=== PATIENT | male | born 1990 | race Hispanic/Latino ===

== ENCOUNTER 2017-05-04 10:26 | Emergency (ER) | payer SELFPAY ==
[2017-05-04] MEDS ORDERED: TETANUS/DIPHTHERIA TOXOID [ADULT] 0.5 ML VIAL IM ONE (11:10)
== END 2017-05-04 12:22 | disposition home or self-care (01) ==
LOC: EDH 10:26
DX: S61.432A Puncture wound without foreign body of left hand, initial encounter (principal); S61.431A Puncture wound without foreign body of right hand, initial encounter; Z72.0 Tobacco use; W26.0XXA Contact with knife, initial encounter; Y93.89 Activity, other specified; Y92.89 Other specified places as the place of occurrence of the external cause; Y99.8 Other external cause status
CPT/HCPCS: 90471; 90714

== ENCOUNTER 2017-09-06 23:10 | Emergency (ER) | payer OTHER | END 2017-09-06 23:46 | disposition home or self-care (01) | LOC: EDH 23:10 | DX: K08.89 Other specified disorders of teeth and supporting structures (principal) | CPT/HCPCS: 99281 ==

== ENCOUNTER 2024-10-12 09:34 | Emergency (ER) | payer SELFPAY ==
[~2024-10-12] VITALS: Ht 165.1 cm; Wt 95.3 kg
[2024-10-12] MEDS: 0.9%NACL 1000ML 1,000 ML IV ONE (10:19)
[2024-10-12 10:26] LABS: IMMATURE GRANULOCYTE ABSOLUTE 0.01 K/uL (0-1); NUCLEATED RED BLOOD CELLS 0.0 % (0.0-0.19); PLATELET COUNT (AUTO) 192 K/uL (130-400); RED BLOOD CELL COUNT(AUTO) 5.09 MIL/uL (4.50-6.20); RED CELL DISTRIBUTION WIDTH 12.3 % (11.0-15.5); WHITE BLOOD COUNT (AUTO) 6.1 K/uL (4.8-10.8)
[2024-10-12 10:40] LABS: CREATININE 0.9 mg/dL (0.5-1.3); GLOMERULAR FILTR. RATE CALC 117.0 mL/min (>90); GLUCOSE,RANDOM 133.0 mg/dL (70-105); SODIUM SERUM 134.0 mmol/L (136-145); UREA NITROGEN, BLOOD 10.0 mg/dL (7-18)
[2024-10-12 11:23] VITALS: BP 117/74; PULSE 87; RESP 18; TEMP 98.7; O2SAT 97
[2024-10-12] MEDS ORDERED: ONDA-243 PO (11:32)
--- NOTE | 2024-10-12 11:32 | ERN ---
ED Note History of Present Illness Stated Complaint: HEADACHE, N/V Chief Complaint: Headache Time Seen by MD: 09:37 Dictation: 33-year-old male presenting to the emergency department with a headache nausea vomiting reports that he was outside for multiple hours doing yd work and began having symptoms of dehydration. Patient reports he feels better now that he is in the AC and denies any chest pain or shortness of breath Allergies: Coded Allergies: No Known Drug Allergies (Unverified Allergy, Unknown, 10/12/24) Past Medical History Past Medical History: No Pertinent History Surgical History: None Review of System Dictation Constitutional: Negative for fever,chills, and weight loss Eyes: Negative for injury, pain,redness, and discharge ENT: Negative for injury,pain or swelling Cardiovascular: Negative for chest pain, palpitations, and edema Respiratory: Negative for shortness of breath, cough, and wheezing, Abdomen/GI per HPI : Negative for injury, bleeding and discharge MS/Extremity: Negative for injury and deformity Skin: Negative for rash, and discoloration Neuro: Per HPI Initial Vital Sign VS Vital Signs Date Time Temp Pulse Resp B/P (MAP) Pulse Ox O2 Delivery O2 Flow Rate FiO2 10/12/24 09:36 99.1 96 18 110/63 96 Room Air 0 10/12/24 10:01 21 Physical Exam Dictation General: awake, alert, NAD Head/Face: Normocephalic, atraumatic Eyes: PERRL, EOMI, vision at baseline ENT: oral cavity clear, TMs clear, no signs of infection Neck: Trachea midline, supple, no nuchal rigidity Cardiovascular: RRR, normal S1/S2, No MRGs, no JVD Respiratory: CTAB, no respiratory distress, No rales or wheezes Abdomen: Soft, non-tender, non-distended, normal bowel sounds, no guarding or rebound. Skin: Warm, dry, normal turgor, no rash MS/Extremity: Pulses equal, no cyanosis, neurovascular intact, FROM Neuro: COAx4, GCS 15, strength 5/5, CN 2-12 intact, normal cerebellar exam, normal gait, Psych: Normal behavior, mood, and affect normal Results (Laboratory/Radiology) Laboratory/Radiology Laboratory Tests Test 10/12/24 10:18 White Blood Count 6.1 K/uL (4.8-10.8) Red Blood Count 5.09 MIL/uL (4.50-6.20) Hemoglobin 15.7 g/dL (14.0-18.0) Hematocrit 45.1 % (42-54) Mean Corpuscular Volume 88.6 fL (79-99) Mean Corpuscular Hemoglobin 30.8 pg (27.0-33.0) Mean Corpuscular Hemoglobin Concent 34.8 g/dL (32.0-36.0) Red Cell Distribution Width 12.3 % (11.0-15.5) Platelet Count 192 K/uL (130-400) Mean Platelet Volume 9.5 fL (7.5-10.5) Immature Granulocyte % (Auto) 0.2 % (0-1) Neutrophils (%) (Auto) 71.8 % (40.0-77.0) Lymphocytes (%) (Auto) 16.2 % (21.0-51.0) L Monocytes (%) (Auto) 11.3 % (3.0-13.0) Eosinophils (%) (Auto) 0.0 % (0.0-8.0) Basophils (%) (Auto) 0.5 % (0.0-5.0) Neutrophils # (Auto) 4.4 K/uL (1.8-7.7) Lymphocytes # (Auto) 1.0 K/uL (1.0-4.8) Monocytes # (Auto) 0.7 K/uL (0.1-1.0) Eosinophils # (Auto) 0.00 K/uL (0.00-0.70) Basophils # (Auto) 0.03 K/uL (0.00-0.20) Absolute Immature Granulocyte (auto 0.01 K/uL (0-1) Nucleated Red Blood Cells 0.0 % (0.0-0.19) Sodium Level 134 mmol/L (136-145) L Potassium Level 4.1 mmol/L (3.5-5.1) Chloride Level 97 mmol/L (101-111) L Carbon Dioxide Level 29 mmol/L (21-32) Blood Urea Nitrogen 10 mg/dL (7-18) Creatinine 0.9 mg/dL (0.5-1.3) Glomerular Filtration Rate Calc 117 mL/min (>90) Random Glucose 133 mg/dL (70-105) H Total Calcium 8.9 mg/dL (8.5-10.1) Total Creatine Kinase 227 U/L (21-232) Labs Reviewed?: Yes ED Course ED Course Orders Procedure Category Date Status Time Basic Metabolic Panel LAB 10/12/24 Complete 10:00 Cbc With Differential LAB 10/12/24 Complete 10:00 Ondansetron 4mg Inj PHA 10/12/24 Complete (Zofran 4mg Inj) 10:00 0.9%Nacl 1000ml (Ns PHA 10/12/24 Complete 1000ml) 10:00 Creatine Kinase, Total LAB 10/12/24 Complete 10:31 Current Medications Medications (Trade) Dose Ordered Sig/Nick Route PRN Reason Start Time Stop Time Status Last Admin Dose Admin Ondansetron HCl (zoFRAN 4MG INJ) 4 mg ONCE ONCE IVP 10/12/24 10:00 10/12/24 10:04 DC 10/12/24 10:19 Sodium Chloride 1,000 ml @ 0 mls/hr ONCE ONCE IV 10/12/24 10:00 10/12/24 10:04 DC 10/12/24 10:19 Vital Signs Date Time Temp Pulse Resp B/P (MAP) Pulse Ox O2 Delivery O2 Flow Rate FiO2 10/12/24 11:23 98.8 87 18 117/74 97 Room Air* 0 10/12/24 10:01 99.1 96 16 110/63 96 Room Air* 0 10/12/24 09:36 99.1 96 18 110/63 96 Room Air 0 Medical Decision Making MDM MDM: Differential diagnosis: Rationale: Tests considered and ordered secondary to shared decision making include: Previous outside records reviewed: Old ER visits. Risk of complication and/or morbidity or mortality of patient management: None Medications-Per medication reconciliation Need for hospitalization: Patient does not meet criteria for hospitalization. Need for emergency major/minor surgery: No There are no social concerns with this patient. Prescription drug management Prescriptions will include symptomatic care Patient's prior external medical records from other ER visits were reviewed by me as indicated. Prior testing and results from previous visits were reviewed. Prior tests were taken into account with medical decision making and resource utilization, independent historian/historians were used to obtain complete medical history. I independently interpreted the test that were performed, results were reviewed by me and considered findings on radiology if ordered. Medical management and examination interpretation discussions were had by me with other qualified healthcare professionals as indicated for the patient's care. 33-year-old male with dehydration nausea vomiting and headache, symptoms improved labs are all normal vital signs are normal and neuro exam is all normal no CT scan of the head is indicated headache has resolved after IV fluids. DX & DISP Disposition: Discharge Departure Impression: Primary Impression: Acute dehydration Additional Impression: Acute headache Condition: Stable Scripts Ondansetron (Ondansetron Odt) 4 Mg Tab.rapdis 4 MG PO BID for vomiting for 5 Days, #10 TAB Prov: ILEANA KING MD 10/12/24 Referrals: SELF,REFERRAL (PCP) ILEANA KING MD Oct 12, 2024 11:32
== END 2024-10-12 11:36 | disposition home or self-care (01) ==
LOC: EDH 09:34
DX: E86.0 Dehydration (principal); R51.9 Headache, unspecified
CPT/HCPCS: 99283; 96374; 96361; 82550; 80048; 85025; 36415; J7030; J2405